=== PATIENT | female | born 1945 | race Caucasian/White ===

== ENCOUNTER 2022-06-20 08:26 | Emergency (ER) | payer OTHER, SELFPAY ==
[2022-06-20] VITALS (16 sets, daily range): BP systolic 125–146; BP diastolic 62–101; PULSE 75–100; RESP 18; O2SAT 93–99; BMI 31.0
--- NOTE | 2022-06-20 08:33 | ED.GENADULT ---
HPI - General Adult General Chief complaint: Nausea/Vomiting/Diarrhea Stated complaint: sent by [facility] lost 16 lbs in T-7/D/chills/fever Time Seen by Provider: 06/20/22 08:33 History of Present Illness HPI narrative: 76-year-old female nonsmoker with noncontributory medical history presents at the request of the walk-in clinic for evaluation of crampy abdominal discomfort and frequent diarrhea with 16 lb unplanned weight loss over the past week or so. She denies any recent antibiotics, travel, bad food or sick persons. She states she is been having about 3 episodes of diarrhea, sometimes with associated mucus per day and admits to some crampy abdominal discomfort that builds until she has a bowel movement and then experiences some brief relief. She has had no runny nose, sore throat or cough. She denies any difficulty in breathing. She has had some subjective fever and chills but not for the past few days. She has been taking Imodium with little to no relief. She denies urinary complaints such as dysuria, frequency or urgency. Related Data Previous Rx's Medication Instructions Recorded azithromycin 500 mg tablet 500 mg PO DAILY 3 days #3 tabs 06/20/22 Allergies Allergy/AdvReac Type Severity Reaction Status Date / Time gabapentin Allergy Nausea Verified 06/20/22 08:56 Review of Systems Review of Systems Narrative: GENERAL: See HPI HEENT: Denies sinus pain, ear pain, sore throat, difficulty swallowing, dizziness. RESPIRATORY: Denies dyspnea, cough, wheezing, hemoptysis, sputum. CARDIOVASCULAR: Denies chest pain, palpitations, orthopnea, edema, GASTROINTESTINAL: See HPI : Denies dysuria, frequency, incontinence, hematuria, urinary retention. MUSCULOSKELETAL: denies weakness, joint pain, or bony pain SKIN: Denies rash, skin lesions, or other NEUROLOGIC: Denies weakness, headache, numbness, change in speech, confusion, seizures, incoordination. PSYCHIATRIC: No concerning psychosocial issues. 12 point review of systems is negative except for those stated above Patient History Social History Smoking Status: Former smoker Exam Narrative Exam Narrative: GENERAL: [76] year old patient appears stated age. Well-developed patient, in mild distress. HEAD: Atraumatic. Normocephalic. EYES: Pupils equal round and reactive. Extraocular motions intact. No scleral icterus. No injection or drainage. ENT: Nose without bleeding, purulent drainage. Throat without erythema, tonsillar hypertrophy or exudate. Airway patent. NECK: Trachea midline. Non tender CARDIOVASCULAR: Regular rate and rhythm without murmurs, gallops, or rubs. RESPIRATORY: Clear to auscultation. Breath sounds equal bilaterally. No wheezes, rales, or rhonchi. GASTROINTESTINAL: Abdomen soft, non-tender, nondistended. Increased bowel sounds in all 4 quadrants EXTREMITIES: No edema or joint tenderness. BACK: Nontender without deformity or crepitance. No flank tenderness. NEURO: AOx3. SKIN: No rash or erythema of visible areas Initial Vital Signs Initial Vital Signs: Vital Signs Pulse Oximetry 94 06/20/22 08:34 Course Orders Ordered: Discontinued Medications Lactated Ringer's (Lactated Ringers) 1,000 mls @ 1,000 mls/hr IV BOLUS ONE Stop: 06/20/22 09:42 Last Infusion: 06/20/22 10:37 Dose: 0 mls/hr Documented By: Admin: 06/20/22 09:09 Dose: 1,000 mls/hr Documented By: DIANA Lactated Ringer's (Lactated Ringers) 1,000 mls @ 1,000 mls/hr IV BOLUS ONE Stop: 06/20/22 12:50 Last Infusion: 06/20/22 13:23 Dose: 0 mls/hr Documented By: Admin: 06/20/22 12:11 Dose: 1,000 mls/hr Documented By: DIANA Vital Signs Vital signs: Vital Signs - 8 hr 06/20/22 08:49 Pulse Rate 94 H Respiratory Rate 18 Blood Pressure 146/84 H Pulse Oximetry 95 Oxygen Delivery Method Room Air Medical Decision Making Lab Data 06/20/22 08:45 06/20/22 08:45 Labs: Lab Results 06/20/22 06/20/22 06/20/22 Range/Units 08:45 08:45 08:45 WBC 8.0 (4.5-11.0) X10^3/uL RBC 4.95 (4.0-5.2) X10^6/uL Hgb 14.4 (12.0-16.0) g/dL Hct 41.7 (36-46) % MCV 84.2 (80-100) fL MCH 29.2 (26-34) PG MCHC 34.6 (30-36) % RDW 13.2 (11.6-14.8) % Plt Count 266 (150-400) X10^3/uL Neut % (Auto) 70.5 (50-75) % Lymph % (Auto) 19.5 L (25-40) % [place] % (Auto) 6.9 (3-14) % Eos % (Auto) 2.3 (2-4) % Baso % (Auto) 0.8 (0-2) % Neut # (Auto) 5600 (3142-9707) /uL Lymph # (Auto) 1600 (1286-9442) /uL [place] # (Auto) 500 (0-900) /uL Eos # (Auto) 200 (0-450) /uL Baso # (Auto) 100 (0-100) /uL Sodium 138 (137-145) mmol/L Potassium 3.3 L (3.4-5.1) mmol/L Chloride 100 (98-107) mmol/L Carbon Dioxide 26 (22-32) mmol/L BUN 20 H (7-17) mg/dL Creatinine 0.85 (0.52-1.04) mg/dL Estimated GFR > 60 (>60) mL/min BUN/Creatinine Ratio 23.5 H (6-22) Glucose 114 H (80-110) mg/dL Calcium 9.6 (8.4-10.2) mg/dL Magnesium 1.6 (1.6-2.3) mg/dL Total Bilirubin 0.8 (0.2-1.3) mg/dL AST 54 H (14-36) IU/L ALT 40 H (<35) IU/L Alkaline Phosphatase 69 (38-126) U/L Total Protein 8.6 H (6.3-8.2) g/dL Albumin 5.0 (3.5-5.0) g/dL Globulin 3.6 (1.7-4.1) g/dL Albumin/Globulin Ratio 1.4 (1.0-2.8) Lipase 58 (23-300) U/L Urine Dip Bedside Urine Glucose Negative Bedside Urine Bilirubin - Negative Bedside Urine Ketone - Negative Urine Specific [place] 1.015 Bedside Urine Occult Blood - Negative Bedside Urine pH 6.0 Bedside Urine Protein - Negative Bedside Urine Urobilinogen - Negative Bedside Urine Nitrite - Negative Bedside Urine Leukocytes - Negative Esterase Point of care testing: Urine Dip Bedside Urine Glucose Negative Bedside Urine Bilirubin - Negative Bedside Urine Ketone - Negative Urine Specific [place] 1.015 Bedside Urine Occult Blood - Negative Bedside Urine pH 6.0 Bedside Urine Protein - Negative Bedside Urine Urobilinogen - Negative Bedside Urine Nitrite - Negative Bedside Urine Leukocytes - Negative Esterase MDM Narrative Medical decision making narrative: CC: 76-year-old female with fever, chills and diarrhea with 16 lb weight loss Complicating co-morbidities: Age Data collected from: Patient Medical records reviewed: Prior notes reviewed in our EMR Differential considered, but not limited to: C diff, norovirus, rotavirus, electrolyte abnormality, dehydration, kidney injury versus other Exam documented above, pertinent findings include: Alert and oriented, moist mucous membranes, heart rate regular, lungs clear, abdomen soft with increased bowel sounds Lab Test results independently reviewed as above. Pertinent findings: Treatments: Fluids Re-evaluations: Patient feeling much better Discussion: Patient with reassuring history and physical exam and no significant abnormal labs. Despite her best efforts and over multiple hours she was unable to produce a stool sample. Given the duration of her symptoms and weight loss we discussed the pros and cons of treating with antibiotics and sure the opinion that it is indicated at this point in time. Disposition: see below, along with detailed discharge instructions that have been reviewed with patient as well as indications for ED re-evaluation and additional outpatient follow up Discharge Plan Departure Patient Disposition: Home Clinical Impression: Diarrhea Instructions: Diarrhea, DI for Dehydration -- Adult Activity Restrictions/Additional Instructions: *You have been diagnosed with [diarrhea] * As we discussed your history and physical exam as well as labs and imaging are very reassuring. There is no evidence of any severe diagnoses that would require a specific or immediate intervention. *What to do: *Please continue to take your regular medications as directed. [x ] New medication prescriptions sent to your pharmacy: [ [facility]] *Please follow up with your primary care provider in 2-3 days, call for an appointment. Let them know you were seen in the Emergency Department and that we ask that you be seen in follow up. We will electronically transmit a record of today's note if your PCP is in our system *Please consider a clear liquid diet for the next 24-48 hours and then slowly advance to regular as tolerated. Also, try to avoid alcohol, nicotine, caffeine, spicy, acidic or fatty foods as this may worsen your symptoms *If you do not have a primary care provider please contact the [facility] Resource line at [phone]. They will ask some questions about your medical history and help get you set up with a doctor in the community. *Return to Emergency Department if you should have any new, worsening or concerning symptoms, such as [fever greater than 101 F, shaking chills, worsening pain, persistent vomiting or other bothersome symptoms] Prescriptions: New azithromycin 500 mg tablet 500 mg PO DAILY 3 Days Qty: 3 0RF Referrals: Laurence De Jesus PA-C [Primary Care Provider] - Stand Alone Forms: Patient Portal/API, Work Release Note
[2022-06-20 08:54] LABS: Add Manual Diff / Slide Review NO; Basophils Absolute Auto 100 /uL (0-100); Basophils Percent Auto 0.8 % (0-2); Eosinophils Absolute Auto 200 /uL (0-450); Eosinophils Percent Auto 2.3 % (2-4); Hematocrit 41.7 % (36-46); Hemoglobin 14.4 g/dL (12.0-16.0); Lymphocytes Absolute Auto 1600 /uL (1100-4500); Lymphocytes Percent Auto 19.5 % (25-40); Mean Corpuscular HGB Conc 34.6 % (30-36); Mean Corpuscular Hemoglobin 29.2 PG (26-34); Mean Corpuscular Volume 84.2 fL (80-100); Monocytes Absolute Auto 500 /uL (0-900); Monocytes Percent Auto 6.9 % (3-14); Neutrophils Absolute Auto 5600 /uL (1500-7000); Neutrophils Percent Auto 70.5 % (50-75); Platelet Count 266 X10^3/uL (150-400); Red Blood Cell Count 4.95 X10^6/uL (4.0-5.2); Red Cell Distribution Width 13.2 % (11.6-14.8)
[2022-06-20] MEDS: LACTATED RINGERS 1,000 ML 1000 ML IV ×2 (09:09→12:11)
[2022-06-20 09:14] LABS: Alanine Aminotransferase 40 IU/L (<35); Albumin Globulin Ratio 1.4 (1.0-2.8); Alkaline Phosphatase 69 U/L (38-126); Aspartate Aminotransferase 54 IU/L (14-36); BUN Creatinine Ratio 23.5 (6-22); Bilirubin Total 0.8 mg/dL (0.2-1.3); Blood Urea Nitrogen 20 mg/dL (7-17); Calcium 9.6 mg/dL (8.4-10.2); Carbon Dioxide 26 mmol/L (22-32); Chloride 100 mmol/L (98-107); Estimated Glomerular Filt Rate > 60 mL/min (>60); Globulin 3.6 g/dL (1.7-4.1); Glucose 114 mg/dL (80-110); HEMOLYSIS 22 (0-50); Lipase 58 U/L (23-300); Magnesium 1.6 mg/dL (1.6-2.3); Potassium 3.3 mmol/L (3.4-5.1); Sodium 138 mmol/L (137-145); Total Protein 8.6 g/dL (6.3-8.2)
== END 2022-06-20 14:38 | disposition home or self-care (01) ==
PROVIDERS: Emergency Provider Emergency Medicine; PCP Physician Assistant
DX: R19.7 Diarrhea, unspecified (principal); R11.2 Nausea with vomiting, unspecified; E86.0 Dehydration
CPT/HCPCS: 36415; 80053; 81003; 83690; 83735; 85025; 96360; 96361; 99284

== ENCOUNTER 2023-03-17 12:05 | Emergency (ER) | payer OTHER, SELFPAY ==
[2023-03-17 12:28] VITALS: BP 138/73; PULSE 84; RESP 18; TEMP 36.9; O2SAT 96; BMI 31.0
--- NOTE | 2023-03-17 12:37 | DI.RAD.S_ITS ---
PROCEDURE: XR RIBS LT 2V INDICATIONS: Left sided rib pain after fall on stairs. TECHNIQUE: 2 views of the ribs were acquired. COMPARISON: None. FINDINGS: Surgical changes and devices: Left-sided dual-chamber pacemaker. Left axillary clips. Bones and chest wall: Anterior left 6th rib fracture without displacement Lungs and pleura: The visualized lung appears clear. No pleural effusions or pneumothorax are visible. IMPRESSION: Anterior left 6th rib fracture, nondisplaced. No pneumothorax Approved by: Augusto Mendoza M.D. on 03/17/2023 at 15:01
--- NOTE | 2023-03-17 13:09 | ED_ITS ---
HPI - Fall <Alexa Steiner PA-C - Last Filed: 03/17/23 16:49> General Chief Complaint: Fall Stated Complaint: thinks broken rib lt side Time Seen by Provider: 03/17/23 15:34 Source: patient Mode of arrival: Ambulatory History of Present Illness HPI Narrative: Patient is a 77-year-old female with pacemaker presenting for evaluation of left anterior and lateral rib pain. She states that this pain started after she fell up the stairs 6 days ago. She denies hitting her head. She denies anticoagulant use. She denies loss of consciousness. She reports she tripped because her arms were full. She reports she stayed home the day after her fall due to the , then was able to attend work the next 2 days without issues. She is reporting to the emergency room because it seems the pain seems to have worsened over the last 2 days. She reports an increased sensation of difficulty breathing, but reports she can still take deep breaths with just a tinge of pain in this area. She states that movement exacerbates this pain. She denies any history of anticoagulation issues. She reports being able to go to work for 2 days. Related Data Previous Rx's Medication Instructions Recorded hydrocodone 5 mg-acetaminophen 325 1 tab PO Q6H PRN pain 3 days #10 03/17/23 mg tablet tabs Allergies Allergy/AdvReac Type Severity Reaction Status Date / Time gabapentin Allergy Nausea Verified 03/17/23 12:34 Review of Systems <Alexa Steiner PA-C - Last Filed: 03/17/23 16:49> Review of Systems Narrative: See HPI Patient History <Alexa Steiner PA-C - Last Filed: 03/17/23 16:49> Social History Smoking Status: Former smoker Smoking Status: Former smoker alcohol intake frequency: holidays/special occasions only Substance Use Type: does not use Exam <Alexa Steiner PA-C - Last Filed: 03/17/23 16:49> Initial Vital Signs Initial Vital Signs: Vital Signs Temperature 98.5 F 03/17/23 12:28 Pulse Rate 84 03/17/23 12:28 Respiratory Rate 18 03/17/23 12:28 Blood Pressure 138/73 03/17/23 12:28 Pulse Oximetry 96 03/17/23 12:28 Oxygen Delivery Method Room Air 03/17/23 12:28 GENERAL: [] year old patient appears stated age. Well-developed patient, in no acute distress. HEAD: Atraumatic. Normocephalic. EYES: Pupils equal round No scleral icterus. No injection or drainage. NECK: Trachea midline, supple CHEST: Quite tender to palpation of left anterolateral chest around the level of T5-T6. Nontender on right side, no left scapular tenderness noted RESPIRATORY: Clear to auscultation bilaterally with no wheezes rales or rhonchi. Speaking comfortably normal tone of voice without any increased work of breathing. CARDIOVASCULAR: Regular rate and rhythm with no murmurs rubs or gallops BACK: Nontender without deformity or crepitance. NEURO: AOx3. SKIN: No rash or erythema of visible areas <Alejandra Plaza MD - Last Filed: 03/17/23 17:11> Initial Vital Signs Initial Vital Signs: Vital Signs Temperature 98.5 F 03/17/23 12:28 Pulse Rate 84 03/17/23 12:28 Respiratory Rate 18 03/17/23 12:28 Blood Pressure 138/73 03/17/23 12:28 Pulse Oximetry 96 03/17/23 12:28 Oxygen Delivery Method Room Air 03/17/23 12:28 Course <Alexa Steiner PA-C - Last Filed: 03/17/23 16:49> Orders Ordered: ED Orders 03/17/23 12:37 XR ribs LT 2V Stat Discontinued Medications Acetaminophen (Acetaminophen 325 Mg Tablet) 650 mg PO Q6H PRN PRN Reason: Fever/Mild Pain (1-3) Last Admin: 03/17/23 13:51 Dose: 650 mg Documented By: RAFAEL Lidocaine (Lidocaine 5% Patch) 1 each TOP NOW ONE Stop: 03/17/23 15:51 Last Admin: 03/17/23 16:05 Dose: 1 each Documented By: RAFAEL Oxycodone HCl (Oxycodone Ir 5 Mg Tablet) 5 mg PO NOW ONE Stop: 03/17/23 15:11 Last Admin: 03/17/23 15:15 Dose: 5 mg Documented By: RAFAEL Vital Signs Vital signs: Vital Signs - 8 hr 03/17/23 12:28 03/17/23 14:45 03/17/23 16:03 Temperature 98.5 F Pulse Rate 84 75 77 Respiratory Rate 18 18 16 Blood Pressure 138/73 153/85 H 146/75 H Pulse Oximetry 96 97 95 Oxygen Delivery Method Room Air Room Air Room Air <Alejandra Plaza MD - Last Filed: 03/17/23 17:11> Orders Ordered: ED Orders 03/17/23 12:37 XR ribs LT 2V Stat Discontinued Medications Acetaminophen (Acetaminophen 325 Mg Tablet) 650 mg PO Q6H PRN PRN Reason: Fever/Mild Pain (1-3) Last Admin: 03/17/23 13:51 Dose: 650 mg Documented By: RAFAEL Lidocaine (Lidocaine 5% Patch) 1 each TOP NOW ONE Stop: 03/17/23 15:51 Last Admin: 03/17/23 16:05 Dose: 1 each Documented By: RAFAEL Oxycodone HCl (Oxycodone Ir 5 Mg Tablet) 5 mg PO NOW ONE Stop: 03/17/23 15:11 Last Admin: 03/17/23 15:15 Dose: 5 mg Documented By: RAFAEL Vital Signs Vital signs: Vital Signs - 8 hr 03/17/23 12:28 03/17/23 14:45 03/17/23 16:03 Temperature 98.5 F Pulse Rate 84 75 77 Respiratory Rate 18 18 16 Blood Pressure 138/73 153/85 H 146/75 H Pulse Oximetry 96 97 95 Oxygen Delivery Method Room Air Room Air Room Air MDM - Fall <Alexa Steiner PA-C - Last Filed: 03/17/23 16:49> Imaging Data Ribs x-ray: Radiologist's Impression: PROCEDURE: XR RIBS LT 2V INDICATIONS: Left sided rib pain after fall on stairs. TECHNIQUE: 2 views of the ribs were acquired. COMPARISON: None. FINDINGS: Surgical changes and devices: Left-sided dual-chamber pacemaker. Left axillary clips. Bones and chest wall: Anterior left 6th rib fracture without displacement Lungs and pleura: The visualized lung appears clear. No pleural effusions or pneumothorax are visible. IMPRESSION: Anterior left 6th rib fracture, nondisplaced. No pneumothorax Approved by: Augusto Mendoza M.D. on 03/17/2023 at 15:01 [facility] Narrative Medical decision making narrative: 77-year-old female presenting for evaluation of left-sided rib pain since falling up the stairs 5 days ago landing on her left side. She reported to the ED today because her pain in this location seems to have worsened over the last 2 days. She reports a sensation of increased difficulty breathing, but denies any pain with deep inspiration. She is concerned for possible rib fracture. Im aging shows [] Multiple etiologies for patient's symptoms considered including, but not limited to: Rib fracture, pneumonia, PE. My suspicion for PE is low as patient is oxygenating well with no tachycardia and her pain is directly related to her fall and worsens with movement. This pain is reproducible on exam. She is quite tender to physical palpation of left lateral chest. Prior Charts reviewed: Labs reviewed and interpreted by myself: Imaging reviewed: Discussed preliminary results with Dr. Plaza, no abnormality seen. Awaiting radiology read. Consultations: Patient's symptoms improved over duration of stay with above-stated therapies. Findings and discharge diagnosis discussed with patient/family followed by verbalization of understanding Return precautions discussed with patient/family whom verbalize understanding of diagnosis and plan Radiology results returned showing anterior left 6th rib fracture, nondisplaced, no evidence of pneumothorax. Called to notify patient of results and left voicemail for her to call back at [phone]. Recommended treatment is to follow up with PCP, NSAIDs, ice and heat alternating, being mindful of deep breathing to reduce secondary pneumonia. During her visit she declined incentive spirometer training. Discharge Plan Departure Patient Disposition: Home Clinical Impression: Rib pain on left side Activity Restrictions/Additional Instructions: Thank you for coming in today for your care. We discussed that your symptoms seem most consistent with either a muscle spasm of your left chest wall or possibly a rib fracture on the left side. Since there is a delay in x-ray read from Radiology, we discussed that it is likely safe for you to go home and be notified of results later. If you do have a rib fracture, treatment is NSAIDs, ensuring appropriate deep breathing to reduce risk of pneumonia and follow up with primary care provider. There was no splinting necessary for this. If there is no fracture present, it is possible her symptoms are related to a muscle spasm in which case heat, [id number] lidocaine patches, and gentle stretching can help relieve symptoms. I have also prescribed a short duration of [place] for your comfort. We discussed this can cause increased drowsiness, increased risk of falls and constipation. Please be mindful of these symptoms and only take it a time when your risk for falls is low and do not take prior to driving. Please follow up in the ER again if he should develop worsening shortness of breath, severe worsening pain or other concerning signs or symptoms. Also recommend continued follow up with primary care provider to continue monitoring healing. Prescriptions: New hydrocodone-acetaminophen 5-325 mg tablet 1 tab PO Q6H PRN (Reason: pain) 3 Days Qty: 10 0RF Rx Instructions: May cause drowsiness and constipation Referrals: Laurence De Jesus PA-C [Primary Care Provider] - Stand Alone Forms: Patient Portal/API, Work Release Note ED Sign-out <Alejandra Plaza MD - Last Filed: 03/17/23 17:11> Cosign ED Attending Genieature Attestation: I did not see this patient. I was available all times for consultation.
[2023-03-17] MEDS: ACETAMINOPHEN 325 MG TABLET 650 MG PO (13:51)
[2023-03-17 14:45] VITALS: BP 153/85; PULSE 75; RESP 18; O2SAT 97
[2023-03-17] MEDS: OXYCODONE IR 5 MG TABLET PO (15:15)
[2023-03-17 16:03] VITALS: BP 146/75; PULSE 77; RESP 16; O2SAT 95
[2023-03-17] MEDS: LIDOCAINE 5% PATCH 1 EACH TOP (16:05)
== END 2023-03-17 16:19 | disposition home or self-care (01) ==
PROVIDERS: Emergency Provider Physician Assistant; PCP Physician Assistant
DX: R07.81 Pleurodynia (principal); W10.9XXA Fall (on) (from) unspecified stairs and steps, initial encounter
CPT/HCPCS: 71100; 99283; 99284